=== PATIENT | female | born 1990 | race Two or more races ===

== ENCOUNTER 2022-09-21 19:17 | Emergency (ER) | payer BC, OTHER ==
[~2022-09-21] VITALS: Ht 167.6 cm; Wt 82.1 kg
[2022-09-21 20:00] VITALS: PULSE 84; RESP 18; O2SAT 96
[2022-09-21] MEDS ORDERED: ONDANSETRON ODT 4 MG TAB PO ONE (20:00)
[2022-09-21] MEDS ORDERED: MAALOX PLUS or MAALOX 30 ML PO ONE (20:00)
[2022-09-21] MEDS ORDERED: DICYCLOMINE HCL 10 MG CAP PO ONE (20:00)
[2022-09-21 20:10] LABS: Urine Bacteria FEW /hpf (None Seen); Urine Blood Negative /uL (Negative); Urine Mucus FEW (None Seen); Urine Specific Gravity 1.019 (1.001-1.035); Urine WBC 5 /hpf (0 - 5)
[2022-09-21 20:17] LABS: Basophils # (auto) 0.1 10 ^3/uL (0-0.2); Basophils % (auto) 0.6 % (0.0-2.0); Eosinophils # (auto) 0.3 10 ^3/uL (0-0.8); Eosinophils % (auto) 3.5 % (0.0-7.0); Hematocrit 39.6 % (36.0-46.0); Hemoglobin 13.1 g/dL (12.2-16.2); Lymphocytes # (auto) 2.1 10 ^3/uL (0.4-5.4); Lymphocytes % (auto) 26.6 % (10.0-50.0); Mean Corpuscular Hemoglobin 27.6 pg (28.0-32.0); Mean Corpuscular Hgb Conc. 32.9 g/dL (32.0-36.0); Mean Corpuscular Volume 83.9 fL (80.0-100.0); Monocytes # (auto) 0.6 10 ^3/uL (0-1.3); Monocytes % (auto) 7.2 % (0.0-12.0); Neutrophils % (auto) 62.1 % (37.0-80.0); Red Blood Cells 4.73 10^6/uL (4.0-5.20); Red Cell Distribution Width 13.6 % (11.8-14.3)
[2022-09-21 20:42] LABS: Albumin 4.1 g/dL (3.4-5.0); BUN/Creatinine Ratio 6.5 (10.0-20.0); Potassium 3.5 mmol/L (3.5-5.1)
[2022-09-21 20:44] LABS: Bilirubin, Total 0.4 mg/dL (0.2-1.0); Total Protein 8.3 g/dL (6.4-8.2)
[2022-09-21] MEDS ORDERED: metroNIDAZOLE 500 MG TAB PO ONE (23:30)
[2022-09-21] MEDS ORDERED: ZOFR4T PO (23:35)
[2022-09-21] MEDS ORDERED: CLIN2CRE7 VG (23:35)
[2022-09-21] MEDS ORDERED: HYDR-4798 PO ×2 (23:35)
[2022-09-21] MEDS ORDERED: MET500T PO (23:35)
[2022-09-21] MEDS ORDERED: HYDROcodone-ACET 10/325MG TAB PO ONE (23:45)
[2022-09-21 23:50] VITALS: BP 114/70; PULSE 68; RESP 16; TEMP 98.1; O2SAT 96
[2022-09-22] MEDS ORDERED: OXY5T GT
== END 2022-09-22 00:08 | disposition home or self-care (01) ==
LOC: ER 19:17
DX: A09 Infectious gastroenteritis and colitis, unspecified (principal); B37.31 Acute candidiasis of vulva and vagina; Z88.5 Allergy status to narcotic agent; Z88.6 Allergy status to analgesic agent
CPT/HCPCS: 36415; 74176; 80053; 81001; 83690; 84702; 85025; 99284; J0500; Q0162

== ENCOUNTER 2024-04-12 19:12 | Emergency (ER) | payer OTHER, BC ==
[~2024-04-12] VITALS: Ht 167.6 cm; Wt 81.0 kg
[~2024-04-12 19:12] MED LIST: CLIN2CRE7 VG; MET500T PO; OXY5T GT; ZOFR4T PO
[2024-04-12 19:26] VITALS: BP 148/97; RESP 17; O2SAT 98
[2024-04-12] MEDS ORDERED: LORazepam 0.5 MG TAB PO ONE (19:30)
[2024-04-12] MEDS ORDERED: ASPirin 325 MG TAB PO ONE (19:30)
[2024-04-12 19:32] VITALS: PULSE 86
--- NOTE | 2024-04-12 19:38 | ED.PDOC ---
HPI Comments 34-year-old female with a history of Crohn's disease, mitral valve prolapse, seizure disorder, PTSD brought in by family complaining of chest pain for the last 4-1/2 hours. Patient states pain has been intermittent, is localized to the retrosternal area, described as pressure-like an aching, associated with shortness of breath nausea and dizziness. She states she is currently undergoing cardiac workup and recently had an echocardiogram and EKG. She denies any fever, cough, vomiting, diaphoresis or edema. Chief Complaint: Chest Pain Time Seen by MD: 19:13 Primary Care Provider: az Reviewed Notes: Nurses Notes, Medications, Allergies Allergies: Coded Allergies: Acetaminophen (Verified Allergy, Unknown, 09/21/22) Codeine (Verified Allergy, Unknown, 09/21/22) Home Meds Active Scripts Oxycodone Hcl (OXYCODONE HCL) 5 Mg Tb, 5 MG GT Q6HP PRN, #20 TAB Prov:ERICKA CHAHAL [facility] 09/22/22 Ondansetron Odt 4MG Tab (ZOFRAN PO) 4 Mg Tb, 4 MG PO Q6HP PRN, #15 TAB ODT TAB-DISSOLVE IN MOUTH, THEN SWALLOW Prov:ERICKA CHAHAL [facility] 09/21/22 Clindamycin Phosphate (Clindamycin Phosphate) 2 % Cre, 1 APPLIC VG QPM for 7 Days, #40 GRAMS Prov:ERICKA CHAHAL [facility] 09/21/22 Metronidazole (Metronidazole) 500 Mg Tab, 500 MG PO TID for 10 Days, #30 TAB Prov:ERICKA CHAHAL [facility] 09/21/22 Information Source: Patient Mode of Arrival: Ambulatory Past Medical History Past Medical History (Other): Crohn's disease, mitral valve prolapse, seizure disorder, PTSD Surgical History: Cholecystectomy ADMISSIONS CONSULTANT History: No Pertinent ADMISSIONS CONSULTANT History Family History Family History: Reviewed,noncontributory to illness Social History Smoker: Non-Smoker Alcohol: Denies ETOH Use Drugs: Denies Drug Use Lives In: Home All Other Systems: Reviewed and Negative (Comprehensive systems review obtained and negative except for what is stated in the HPI.) Physical Exam General Appearance: Mild Distress HEENT: Other (Pupils and face symmetric, moist mucous membranes) Neck: Full Range of Motion, Normal Inspection, Supple Respiratory: Lungs Clear, No Accessory Muscle Use, No Respiratory Distress, Normal Breath Sounds Cardiovascular: No Edema, No JVD, Regular Rate/Rhythm Breast Exam: Deferred Gastrointestinal: Non Tender, Soft Genitalia: Deferred Pelvic: Deferred Rectal: Deferred Extremities: Normal inspection, Normal range of motion, Non-tender, No pedal edema Neurologic: Alert (Oriented x4), Normal Affect, Other (Ambulatory without difficulty. No gross focal deficit. Appears tearful and anxious.) Cerebellar Function: NOT DONE Reflexes: NOT DONE Skin: Dry, Normal Color, Warm Lymphatic: NOT DONE EKG EKG : Comments Sinus rhythm, rate 86, normal CT and QRS intervals, QTC prolonged at 470, border line left axis deviation, normal QRS, nonspecific T changes. Was a procedure done? Was a procedure done?: No CP Differential Dx Differential Diagnosis: Angina, Anxiety / Panic Attack, Heart Failure, NC, Pulmonary Embolus Differential Diagnosis: CHF Differential Diagnosis: Chest Wall Pain, Costochondritis, Esophageal reflux/spasm, Gastritis, Pericarditis, Pneumonia, Pneumothorax X-Ray, Labs, Meds, VS Vital Signs Date Time Temp Pulse Resp B/P (MAP) Pulse Ox O2 Delivery O2 Flow Rate FiO2 04/12/24 19:32 86 04/12/24 19:26 98.0 90 17 148/97 (114) 98 04/12/24 19:22 103 Lab Test 04/12/24 20:10 04/12/24 19:28 Range/Units Troponin I High Sensitivity < 3 L < 3 L </=34 ng/L White Blood Count 8.9 4.4-10.8 10^3/uL Red Blood Count 5.11 4.0-5.20 10^6/uL Hemoglobin 14.0 12.2-16.2 g/dL Hematocrit 42.7 36.0-46.0 % Mean Corpuscular Volume 83.6 80.0-100.0 fL Mean Corpuscular Hemoglobin 27.4 L 28.0-32.0 pg Mean Corpuscular Hemoglobin Concent 32.7 32.0-36.0 g/dL Red Cell Distribution Width 14.0 11.8-14.3 % Platelet Count 424 140-450 10^3/uL Mean Platelet Volume 6.1 L 6.9-10.8 fL Neutrophils (%) (Auto) 70.4 37.0-80.0 % Lymphocytes (%) (Auto) 23.0 10.0-50.0 % Monocytes (%) (Auto) 5.8 0.0-12.0 % Eosinophils (%) (Auto) 0.3 0.0-7.0 % Basophils (%) (Auto) 0.5 0.0-2.0 % Neutrophils # (Auto) 6.3 1.6-8.6 10 ^3/uL Lymphocytes # (Auto) 2.0 0.4-5.4 10 ^3/uL Monocytes # (Auto) 0.5 0-1.3 10 ^3/uL Eosinophils # (Auto) 0 0-0.8 10 ^3/uL Basophils # (Auto) 0 0-0.2 10 ^3/uL Nucleated Red Blood Cells 0.1 % Sodium Level 137 136-145 mmol/L Potassium Level 3.8 3.5-5.1 mmol/L Chloride Level 103 98-107 mmol/L Carbon Dioxide Level 26 20-31 mmol/L Anion Gap 8 5-15 Blood Urea Nitrogen 8 L 9-23 mg/dL Creatinine 0.78 0.550-1.02 mg/dL Glomerular Filtration Rate Calc 102 >90 mL/min BUN/Creatinine Ratio 10.3 10.0-20.0 Serum Glucose 107 H 74-106 mg/dL Calcium Level 10.3 8.7-10.4 mg/dL Magnesium Level 2.2 1.6-2.6 mg/dL Total Bilirubin 0.4 0.2-1.0 mg/dL Aspartate Amino Transferase (AST) 16 13-40 U/L Alanine Aminotransferase (ALT) 17 7-40 U/L Alkaline Phosphatase 83 46-116 U/L B-Type Natriuretic Peptide 11.00 0-100 pg/mL Total Protein 8.8 H 5.7-8.2 g/dL Albumin 5.0 H 3.2-4.8 g/dL PROCEDURE(s): CXRP - CHEST PORTABLE REASON: CP ORDER NUMBER(s): [id number], ACCESSION NUMBER(s): [id number] CHEST RADIOGRAPH Indication: CP Technique: Single frontal view of the chest was obtained Comparison: None FINDINGS: Lines and Tubes: None Lungs: No focal consolidation. Pleura: No effusion. No pneumothorax. Cardiomediastinal contours: Unremarkable Bones: No acute osseous abnormality. IMPRESSION: No acute cardiopulmonary disease. X-Ray, Labs, Meds, VS Comment 34-year-old female with a history of Crohn's disease, mitral valve prolapse, seizures and PTSD complaining of chest pain Vitals remarkable for heart rate 103, blood pressure 148/97 Exam remarkable for appearing anxious and tearful Rhythm strip independently interpreted by me: Sinus rhythm, rate 86, no ectopy. Chest x-ray no acute disease CBC, CMP, Mag level, BNP unremarkable Troponin Patient treated with the following in the ED: Aspirin 325 mg p.o., Ativan 1 mg p.o. On re-evaluation, patient reports persistent chest pain, so nitrobid was ordered. Plan is to admit the patient for Cardiology evaluation. Time of 1ST Reevaluation: 20:19 Reevaluation 1ST: Unchanged Patient Education/Counseling: Diagnosis, Treatment Family Education/Counseling: No Family Present Additional Information - I reviewed the following notes from patient's past medical encounters: ED physician note on 09/21/22 - The following tests were ordered, and results were reviewed by me: EKG, troponin, magnesium, BNP, CBC, CMP, UA, CXR - I reviewed and agreed with the following test results read by other provider: CXR - I discussed treatments and results with medical personnel Departure 1 Departure Time of Disposition: 20:30 Impression: Primary Impression: Chest pain with high risk for cardiac etiology Disposition: ADMITTED INPATIENT Admit to: Tele Condition: Guarded Critical Care Note Critical Care Time?: No Stability Stability form required: No Heart Score Heart Score: Heart Score Response (Comments) Value History Highly Suspicious 2 EKG Repolarization Disturb 1 Age <45 0 Risk Factors No known risk factors 0 Troponin Normal limit 0 Total 3 I personally scribed for FRANKLYN HARTMAN MD ([email or web address]) on 04/12/24 at 20:38. Electronically submitted by Luis Fernando Euceda ([email or web address]). I personally scribed for FRANKLYN HARTMAN MD ([email or web address]) on 04/12/24 at 21:53. Electronically submitted by Luis Fernando Euceda ([email or web address]). I personally scribed for FRANKLYN HARTMAN MD ([email or web address]) on 04/12/24 at 21:56. Electronically submitted by Luis Fernando Euceda ([email or web address]). FRANKLYN HARTMAN MD Apr 12, 2024 19:38
[2024-04-12 19:40] LABS: Basophils # (auto) 0 10 ^3/uL (0-0.2); Basophils % (auto) 0.5 % (0.0-2.0); Eosinophils # (auto) 0 10 ^3/uL (0-0.8); Eosinophils % (auto) 0.3 % (0.0-7.0); Hematocrit 42.7 % (36.0-46.0); Mean Corpuscular Hemoglobin 27.4 pg (28.0-32.0); Mean Corpuscular Hgb Conc. 32.7 g/dL (32.0-36.0); Mean Corpuscular Volume 83.6 fL (80.0-100.0); Monocytes # (auto) 0.5 10 ^3/uL (0-1.3); Monocytes % (auto) 5.8 % (0.0-12.0); Neutrophils # (auto) 6.3 10 ^3/uL (1.6-8.6); Neutrophils % (auto) 70.4 % (37.0-80.0); Nucleated Red Blood Cells % 0.1 %; Platelet Count (auto) 424 10^3/uL (140-450); Red Blood Cells 5.11 10^6/uL (4.0-5.20); White Blood Cell 8.9 10^3/uL (4.4-10.8)
[2024-04-12 19:57] LABS: Alanine Aminotransferase 17 U/L (7-40); Alkaline Phosphatase 83 U/L (46-116); Anion Gap 8 (5-15); Aspartate Aminotransferase 16 U/L (13-40); BUN/Creatinine Ratio 10.3 (10.0-20.0); Calcium 10.3 mg/dL (8.7-10.4); Carbon Dioxide 26 mmol/L (20-31); Chloride 103 mmol/L (98-107); Magnesium 2.2 mg/dL (1.6-2.6); Potassium 3.8 mmol/L (3.5-5.1); Sodium 137 mmol/L (136-145)
[2024-04-12 19:58] LABS: Bilirubin, Total 0.4 mg/dL (0.2-1.0)
[2024-04-12 20:00] LABS: Blood Urea Nitrogen 8 mg/dL (9-23); Glucose 107 mg/dL (74-106); Total Protein 8.8 g/dL (5.7-8.2)
--- NOTE | 2024-04-12 20:09 | DVH ---
CHEST RADIOGRAPH Indication: CP Technique: Single frontal view of the chest was obtained Comparison: None FINDINGS: Lines and Tubes: None Lungs: No focal consolidation. Pleura: No effusion. No pneumothorax. Cardiomediastinal contours: Unremarkable Bones: No acute osseous abnormality. IMPRESSION: No acute cardiopulmonary disease.
[2024-04-12] MEDS ORDERED: NITROGLYCERIN 2% OINT 1GM PKG TD ONE (23:45)
--- NOTE | 2024-04-12 23:54 | ECG ---
[facility] Test Date: 2024-04-12 Test Time: 19:32:00 Pat Name: FARHAN WEBB Department: ED Room: [address] [place] [address] Gender: F Twill Cutter: ANN : 1990 Requested By: FRANKLYN MCCLURE Order Number: [id number] Reading MD: Elvin Lozada Measurements Intervals [place] Rate: 86 P: 63 VT: 149 QRS: -15 QRSD: 94 T: 51 QT: 393 QTc: 470 Interpretive Statements Sinus rhythm Probable left atrial enlargement Borderline left axis deviation Baseline wander in lead(s) V5,V6 Electronically Signed On 04-15-2024 22:01:56 PST by Elvin Lozada Please click the below link to view image of tracing.
--- NOTE | 2024-04-12 23:54 | ECG ---
[facility] Test Date: 2024-04-12 Test Time: 19:22:18 Pat Name: FARHAN WEBB Department: ED Room: [address] [place] [address] Gender: F Rotary Shear Cutter: : 1990 Requested By: FRANKLYN MCCLURE Order Number: [id number] Reading MD: Elvin Lozada Measurements Intervals [place] Rate: 103 P: 74 OR: 144 QRS: -34 QRSD: 92 T: 63 QT: 378 QTc: 495 Interpretive Statements Sinus tachycardia Ventricular premature complex Aberrant conduction of SV complex(es) Left axis deviation Low voltage, precordial leads Anteroseptal infarct, old Baseline wander in lead(s) II,III,aVR,aVL,aVF,V3,V4,V5,V6 Electronically Signed On 04-15-2024 22:01:45 PST by Elvin Lozada Please click the below link to view image of tracing.
[2024-04-13] MEDS ORDERED: NITROGLYCERIN 0.4 MG SL TAB SL PRN
[2024-04-13] MEDS ORDERED: MORPHINE SULFATE INJ 2 MG/ml SYRG IV PRN
== END 2024-04-12 23:59 | disposition home or self-care (01) ==
LOC: ER 19:12 → UNDOADMIN 23:57 → OVERFLOW 23:57 → UNDODISIN 04-13 00:36
DX: R07.89 Other chest pain (principal); F43.10 Post-traumatic stress disorder, unspecified; Z90.49 Acquired absence of other specified parts of digestive tract; Z79.899 Other long term (current) drug therapy; Z88.5 Allergy status to narcotic agent; Z88.8 Allergy status to other drugs, medicaments and biological substances
CPT/HCPCS: 36415; 71045; 80053; 83735; 83880; 84484; 85025; 93005; G0378